=== PATIENT | female | born 1960 | race American Indian/Alaskan Native ===

== ENCOUNTER 2016-12-11 14:15 | Emergency (ER) | payer SELFPAY ==
[2016-12-11 14:33] VITALS: BP 162/82
[2016-12-11 15:29] LABS: Eosinophils % (Auto) 5.3 % (0.0-4.3); Hematocrit 40.9 % (30.3-42.9); Hemoglobin 13.3 gm/dl (10.1-14.3); Mean Corpuscular HGB Conc 33 % (30-34); Mean Corpuscular Hemoglobin 28 pg (28-32); Mean Corpuscular Volume 85 fl (79-97); Platelet Count 349 K/mm3 (140-440); Red Blood Count 4.79 M/mm3 (3.65-5.03); Red Cell Distribution Width 13.9 % (13.2-15.2); White Blood Count 8.7 K/mm3 (4.5-11.0)
[2016-12-11 15:53] LABS: Anion Gap 20 mmol/L; BUN/Creatinine Ratio 16.25; Blood Urea Nitrogen 13 mg/dL (7-17); Calcium 8.9 mg/dL (8.4-10.2); Carbon Dioxide 27 mmol/L (22-30); Glucose 129 mg/dL (65-100); Potassium 3.6 mmol/L (3.6-5.0); Sodium 144 mmol/L (137-145)
[2016-12-11 16:26] LABS: Bacteria,Urine 1+ /HPF (Negative); Bilirubin,Urine NEG (Negative); Blood,Urine NEG (Negative); Ketones,Urine NEG (Negative); Leukocyte Esterase,Urine MOD (Negative); Mucus,Urine FEW /HPF; Nitrite,Urine NEG (Negative); Protein,Urine <15 mg/dL mg/dL (Negative)
--- NOTE | 2016-12-12 06:20 | ED Elopement Review ---
ED Pt Elopement review - Results review Lab results: Laboratory Tests 12/11/16 12/11/16 12/11/16 15:09 15:09 15:09 WBC 8.7 RBC 4.79 Hgb 13.3 Hct 40.9 MCV 85 MCH 28 MCHC 33 RDW 13.9 Plt Count 349 Lymph % (Auto) 32.7 Crowley % (Auto) 9.2 H Eos % (Auto) 5.3 H Baso % (Auto) 1.0 Lymph # 2.8 Crowley # 0.8 Eos # 0.5 H Baso # 0.1 Seg Neutrophils % 51.8 Seg Neutrophils # 4.5 Sodium 144 Potassium 3.6 Chloride 101.0 Carbon Dioxide 27 Anion Gap 20 BUN 13 Creatinine 0.8 Estimated GFR > 60 BUN/Creatinine Ratio 16.25 Glucose 129 H Calcium 8.9 Troponin T < 0.010 NT-Pro-B Natriuret Pep 11.98 Urine Color Urine Turbidity Urine pH Ur Specific [place] Urine Protein Urine Glucose (UA) Urine Ketones Urine Blood Urine Nitrite Urine Bilirubin Urine Urobilinogen Ur Leukocyte Esterase Urine WBC (Auto) Urine RBC (Auto) U Epithel Cells (Auto) Urine Bacteria (Auto) Urine Mucus 12/11/16 16:00 WBC RBC Hgb Hct MCV MCH MCHC RDW Plt Count Lymph % (Auto) Crowley % (Auto) Eos % (Auto) Baso % (Auto) Lymph # Crowley # Eos # Baso # Seg Neutrophils % Seg Neutrophils # Sodium Potassium Chloride Carbon Dioxide Anion Gap BUN Creatinine Estimated GFR BUN/Creatinine Ratio Glucose Calcium Troponin T NT-Pro-B Natriuret Pep Urine Color [place] Urine Turbidity Slightly-cloudy Urine pH 7.0 Ur Specific [place] 1.020 Urine Protein <15 mg/dl Urine Glucose (UA) Neg Urine Ketones Neg Urine Blood Neg Urine Nitrite Neg Urine Bilirubin Neg Urine Urobilinogen 2.0 Ur Leukocyte Esterase Mod Urine WBC (Auto) 3.0 Urine RBC (Auto) 2.0 U Epithel Cells (Auto) 3.0 Urine Bacteria (Auto) 1+ Urine Mucus Few - Call Back decision Pt Call Back Decision: No action required
--- NOTE | 2016-12-12 08:11 | XRay Report ---
ROUTINE CHEST, TWO VIEWS: PA and lateral views demonstrate the heart and mediastinal contour to be of normal size and shape. The lungs are clear and fully expanded and the soft tissues and bony structures are normal. IMPRESSION: Normal study.
== END 2016-12-11 20:40 | disposition left against medical advice (07) ==
LOC: ED 14:15
DX: M79.89 Other specified soft tissue disorders (principal); R20.2 Paresthesia of skin; R19.00 Intra-abdominal and pelvic swelling, mass and lump, unspecified site; Z53.21 Procedure and treatment not carried out due to patient leaving prior to being seen by health care provider
CPT/HCPCS: 36415; 71020; 80048; 81001; 83880; 84484; 85025; 93005; 93010

== ENCOUNTER 2017-01-21 22:48 | Emergency (ER) | payer SELFPAY ==
[2017-01-22 00:20] VITALS: BP 157/81
[2017-01-22 00:56] LABS: Hematocrit 41.8 % (30.3-42.9); Hemoglobin 13.6 gm/dl (10.1-14.3); Mean Corpuscular HGB Conc 33 % (30-34); Mean Corpuscular Hemoglobin 28 pg (28-32); Mean Corpuscular Volume 85 fl (79-97); Platelet Count 328 K/mm3 (140-440); Red Blood Count 4.92 M/mm3 (3.65-5.03); White Blood Count 11.3 K/mm3 (4.5-11.0)
[2017-01-22 01:17] LABS: Anion Gap 18 mmol/L; BUN/Creatinine Ratio 21.25; Blood Urea Nitrogen 17 mg/dL (7-17); Calcium 9.3 mg/dL (8.4-10.2); Carbon Dioxide 29 mmol/L (22-30); Chloride 99.5 mmol/L (98-107); Glucose 111 mg/dL (65-100); Potassium 3.5 mmol/L (3.6-5.0); Sodium 143 mmol/L (137-145)
[2017-01-22 06:33] LABS: Basophils % (Manual) 0 % (0.0-1.8); Blastocytes % (Manual) 0 %
[2017-01-22 06:35] LABS: Anisocytosis 1+; Diff Status Complete; Hypochromasia Few; Platelet Estimate Appe; Toxic Vacuolation Few
--- NOTE | 2017-01-22 10:04 | XRay Report ---
CHEST TWO VIEWS: 01/22/17 CLINICAL: Shortness of breath. COMPARISON: 12/11/16 FINDINGS: Normal heart and pulmonary vasculature. The lungs are normally expanded and clear. The bones and soft tissues are normal. IMPRESSION: Normal.No acute cardiopulmonary process.
--- NOTE | 2017-01-23 21:18 | ED Elopement Review ---
ED Pt Elopement review - Results review Lab results: Laboratory Tests 01/22/17 01/22/17 00:43 00:43 WBC 11.3 H RBC 4.92 Hgb 13.6 Hct 41.8 MCV 85 MCH 28 MCHC 33 RDW 14.0 Plt Count 328 Lymph # [employer] Add Manual Diff Complete Total Counted 100 Seg Neuts % (Manual) 53.0 Band Neutrophils % 1.0 Lymphocytes % (Manual) 31.0 Reactive Lymphs % (Man) 1.0 Monocytes % (Manual) 10.0 H Eosinophils % (Manual) 3.0 Basophils % (Manual) 0 Metamyelocytes % 0 Myelocytes % 0 Promyelocytes % 1.0 Blast Cells % 0 Nucleated RBC % Not Reportable Seg Neutrophils # Man 6.0 Band Neutrophils # 0.1 Lymphocytes # (Manual) 3.5 Abs React Lymphs (Man) 0.1 Monocytes # (Manual) 1.1 H Eosinophils # (Manual) 0.3 Basophils # (Manual) 0.0 Metamyelocytes # 0.0 Myelocytes # 0.0 Promyelocytes # 0.1 Blast Cells # 0.0 WBC Morphology Not Reportable Hypersegmented Neuts Not Reportable Hyposegmented Neuts Not Reportable Hypogranular Neuts Not Reportable Smudge Cells Not Reportable Toxic Granulation Not Reportable Toxic Vacuolation Few Dohle Bodies Not Reportable Pelger-Huet Anomaly Not Reportable Susan Rods Not Reportable Platelet Estimate Appe Clumped Platelets Not Reportable Plt Clumps, EDTA Not Reportable Large Platelets Not Reportable Giant Platelets Not Reportable Platelet Satelliting Not Reportable Plt Morphology Comment Not Reportable RBC Morphology Not Reportable Dimorphic RBCs Not Reportable Polychromasia Not Reportable Hypochromasia Few Poikilocytosis Not Reportable Anisocytosis 1+ Microcytosis Not Reportable Macrocytosis Not Reportable Spherocytes Not Reportable Pappenheimer Bodies Not Reportable Sickle Cells Not Reportable Target Cells Not Reportable Tear Drop Cells Not Reportable Ovalocytes Not Reportable Helmet Cells Not Reportable [place] Bodies Not Reportable [place] Rings Not Reportable Kahlotus Cells Not Reportable Bite Cells Not Reportable Crenated Cell Not Reportable Elliptocytes Not Reportable Acanthocytes (Spur) Not Reportable Rouleaux Not Reportable Hemoglobin C Crystals Not Reportable Schistocytes Not Reportable Malaria parasites Not Reportable Tam Bodies Not Reportable Hem Pathologist Commnt No Sodium 143 Potassium 3.5 L Chloride 99.5 Carbon Dioxide 29 Anion Gap 18 BUN 17 Creatinine 0.8 Estimated GFR > 60 BUN/Creatinine Ratio 21.25 Glucose 111 H Calcium 9.3 Troponin T < 0.010 - Call Back decision Pt Call Back Decision: No action required
== END 2017-01-22 01:00 | disposition left against medical advice (07) ==
LOC: ED 22:48
DX: R06.02 Shortness of breath (principal); Z53.21 Procedure and treatment not carried out due to patient leaving prior to being seen by health care provider
CPT/HCPCS: 36415; 71020; 80048; 84484; 85007; 85025; 93005; 93010